=== PATIENT | female | born 1985 | race Caucasian/White ===

== ENCOUNTER 2020-06-07 18:33 | Inpatient (IN) | payer BC ==
[~2020-06-07 18:33] MED LIST: Iopamidol-370 76% 500 ML 1 ML ONE
[2020-06-07] MEDS ORDERED: Lidocaine 1% w/Epinephrine 1:100K 20 ML VIAL ONE ×2 (18:40→20:15)
[2020-06-07] MEDS ORDERED: Boostrix 0.5 ML (Tdap) VIAL ONE (18:45)
[2020-06-07 19:04] LABS: #Eosinphils 0.1 thou/uL (0.0-0.7); #Lymphocytes 2.9 thou/uL (1.20-3.40); #Monocytes 0.6 thou/uL (0.11-0.59); #Neutrophils 9.8 thou/uL (1.40-6.50); %Basophils 0.3 % (0.0-1.0); %Eosinophils 0.7 % (0.0-10.0); %Lymphocytes 21.3 % (21.0-51.0); %Monocytes 4.3 % (0.0-10.0); %Neutrophils 73.4 % (42.0-75.0); Hemoglobin 15.3 g/dL (12.0-16.0); Mean Corpuscular HGB CONC 33.7 g/dL (32.0-36.0); Mean Corpuscular Hemoglobin 29.2 pg (27.0-31.0); Mean Corpuscular Volume 86.5 fL (78.0-98.0); Mean Platelet Volume 8.1 fL (7.4-10.4); Platelet Count 215 thou/uL (130-400); Red Blood Cell (RBC) Count 5.23 mill/uL (4.20-5.40); White Blood Cell (WBC) Count 13.4 thou/uL (4.8-10.8)
[2020-06-07 19:06] LABS: BHCG - Serum Negative (NEGATIVE); Pregs Control Background? CLEAR/WHITE (CLR/WHITE); Pregs Control Bar Appear? YES (CONTROL BAR)
[2020-06-07] MEDS ORDERED: Fentanyl 100 MCG/2 ML VIAL ONE ×3 (19:12→21:48)
[2020-06-07 19:14] LABS: Prothrombin Time 13.2 sec (12.0-14.7)
[2020-06-07 19:16] LABS: ALT (SGPT) 21 U/L (8-55); AST (SGOT) 28 U/L (5-34); Albumin 4.4 g/dL (3.5-5.0); Alkaline Phosphatase 63 U/L (40-110); Anion Gap 18 mmol/L (10-20); BUN (Urea Nitrogen) 15 mg/dL (7.0-18.7); Bilirubin, Total 2.2 mg/dL (0.2-1.2); Calc. Creatinine Clearance 0 mL/min (70-130); Carbon Dioxide 21 mmol/L (22-29); Chloride 102 mmol/L (98-107); Globulin 3.2 g/dL (2.4-3.5); Glucose 123 mg/dL (70-105); PTT 20.1 sec (22.9-36.1); Potassium 3.7 mmol/L (3.5-5.1); Protein, Total 7.6 g/dL (6.0-8.3); Sodium 137 mmol/L (136-145)
--- NOTE | 2020-06-07 19:23 | CT ---
CT Facial Bones WO Con History: Kicked by horse Comparison: None. Findings: Vertically oriented left mandibular parasymphyseal fracture extending through the alveolar bone at the left mandibular canine. Mild comminution of the inferior lateral cortex. No displacement of the alveolar bone. Nondisplaced right parasymphyseal mandibular fracture extending to the alveolar bone of the right man dibular canine. No displacement of the temporal manubrial joints. Bilateral palatine torus. The nasal bones are intact. Osseous nasal septum is intact. The zygoma and zygomatic arches are intac t. The medial orbital crum, lateral orbital crum, orbital floors and orbital roofs are intact. Simultaneous gas throughout the left cheek and bilateral submandibular space. The left mandibular soft tissues the superficial fat are 2 separate radiopaque foreign objects measur ing 2 and 5 mm just underneath the skin surface. Impression: 1. Bilateral mandibular parasymphyseal fractures extending through the alveolar bone of the canine te eth. No significant displacement. 2. Two small 5 and 2 mm radiopaque foreign objects the left mandibular superficial soft tissue just b eneath the skin surface.
--- NOTE | 2020-06-07 20:11 | CT ---
CT OF BRAIN PERFORMED WITHOUT CONTRAST ENHANCEMENT: 06/07/20 HISTORY: Level II trauma. The patient kicked in face and head by a horse as well as in chest region. The ventricular and cisternal system is within normal limits. There is no signs of intracerebral hemo rrhage or extra-axial fluid collections. Mastoid air cells and visualized sinuses are clear. IMPRESSION: No acute intracranial abnormalities. Findings telephoned to Dr. Soriano at 1911 hours. POS: [facility]
--- NOTE | 2020-06-07 20:15 | CT ---
CT OF CERVICAL SPINE PERFORMED WITHOUT CONTRAST ENHANCEMENT: 06/07/20 HISTORY: Neck injury status post being kicked by a horse. Vertebral bodies are normal in height. There is some degenerative changes along the course of the spi ne with some degenerative osteophytic change. The facets are in normal alignment. There is no canal o r foraminal narrowing. There is no Ct evidence for fracture. Lung apices are clear. IMPRESSION: No CT evidence of fracture of the cervical spine. Findings telephoned to Dr. Soriano at 1911 hours. POS: [facility]
[2020-06-07] MEDS ORDERED: Clindamycin/D5W 900 mg/50 ml Premix Bag ONE (20:30)
--- NOTE | 2020-06-07 20:51 | CT ---
CT OF CHEST PERFORMED WITH INTRAVENOUS CONTRAST ENHANCEMENT: 06/07/20 HISTORY: Patient was kicked in chest by a horse. There is anterior left first, second and third rib fractures. No pneumothorax or pleural effusion is identified. No pulmonary contusion seen. Thoracic aorta is normal in caliber. No mediastinal hematoma. Review of osseous structures shows slight irregularity to the anterior cortex of the body of the ster num suggesting subtle fracture. The visualized liver parenchyma shows no focal findings. IMPRESSION: Left anterior first through third rib fractures. No underlying pulmonary contusion. Also what appears to be a subtle nondisplaced fracture of the body of the sternum. Findings telephoned to Dr. Soriano at 1911 hours. POS: [facility]
[2020-06-07] MEDS: Famotidine/PF 20 mg/2ml Vial SLOW IVP SCH (21:00)
[2020-06-07] MEDS ORDERED: Ondansetron ODT 4 MG TAB PO PRN (22:44)
[2020-06-07] MEDS ORDERED: traMADol HCl 50 MG TAB PO PRN (22:44)
[2020-06-07] MEDS ORDERED: Dextrose 5% in Water 1,000 ML IV PRN (22:44)
[2020-06-07] MEDS ORDERED: Ondansetron PF 4 MG/2 ML Vial IVP PRN (22:44)
[2020-06-07] MEDS ORDERED: Cyclobenzaprine 10 MG TAB PO PRN (22:44)
[2020-06-07] MEDS ORDERED: Dextrose 50% Abboject 50 ML SYRINGE SLOW IVP PRN (22:44)
[2020-06-07] MEDS ORDERED: Gabapentin 300 MG CAP PO SCH (23:00)
[2020-06-07] MEDS ORDERED: Famotidine/PF 20 mg/2ml Vial SLOW IVP SCH (23:00)
[2020-06-07] MEDS ORDERED: Ibuprofen 600 MG TAB PO SCH (23:00)
[2020-06-07] MEDS: Acetaminophen 500 MG TAB PO SCH (23:29)
[2020-06-07] MEDS: Sodium Chloride 0.9% 1,000 ML IV SCH (23:30)
[2020-06-07] MEDS: traMADol HCl 50 MG TAB PO PRN (23:33)
--- NOTE | 2020-06-08 01:33 | HP ---
REQUESTING PHYSICIAN: Dr. Willingham. CONSULTATIONS: Oral maxillofacial surgery Dr. Tejada. HISTORY OF PRESENT ILLNESS: The patient is a 34-year-old woman who presented to the emergency department after reportedly getting thrown from a horse and kicked. Patient was brought to the emergency department with chief complaint of face pain and chest discomfort. She underwent evaluation and examination, was noted to have multiple facial fractures and rib fractures, at which time we were asked to evaluate the patient for admission and obtain orthopedic consultations. Patient believes that she had a brief period of loss of consciousness, but was unsure how long. Patient was brought to the emergency department by privately owned vehicle. ALLERGIES: PENICILLIN. CURRENT MEDICATIONS: None. 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 We will ensure that Oral Maxillofacial Surgery is aware that it is actually factor II deficiency. Past medical history also includes anxiety, bipolar disorder, and depression. PAST SURGICAL HISTORY: None. SOCIAL HISTORY: Patient denies drug, tobacco, or alcohol. REVIEW OF SYSTEMS: Ten-point review of systems is negative, except as otherwise stated. PHYSICAL EXAMINATION: VITAL SIGNS: Blood pressure 142/99, heart rate 88, respirations 18, oxygen saturation is 98% on room air, temperature is 98.3. GENERAL: The patient is resting comfortably in bed. She is awake, alert, conversant, and appropriate. Patient is remarkably talkative for someone with mandible fractures. I asked her if she was in one of her manic phases and she denied this. Her [place] Coma Scale is 15. HEENT: Head is normocephalic with contusions noted to her mandible and maxilla area. She also has laceration to the left side of her mandible that Dr. Tejada is at bedside to repair. Eyes are PERRLA. Extraocular motion intact. Nose has dry blood in both nares. Ears are atraumatic with discharge. Oropharynx shows contusion to the upper and lower lip and what appears to be malocclusion. NECK: Immobilized in a cervical collar. Trachea is midline. No JVD. CHEST: Clear to auscultation with moderate inspiratory and expiratory effort as the patient has discomfort due to her rib fractures. ABDOMEN: Soft, flat, nontender with active bowel sounds. EXTREMITIES: Neurovascularly intact x4. LABORATORY DATA: White blood cell count 13.4, hemoglobin 15.3, hematocrit 45.3, platelets 215. Sodium 137, potassium 3.7, chloride 102, CO2 21, BUN 15, creatinine 0.79, glucose 123, total bilirubin 2.2, AST 28, ALT 21, alkaline phosphatase 63. Serum hCG is negative. INR is 1.0. RADIOGRAPHIC REPORTS: CT of the brain without contrast shows no acute intercranial abnormalities. CT of the face without contrast shows bilateral mandibular parasymphyseal fractures extending through the alveolar bone of the canine teeth. No significant displacement. There are 2 small 5 mm and 2 mm foreign objects in the left mandibular superficial soft tissue just beneath the skin surface. CT of the C-spine without contrast shows no evidence of fracture of the C-spine. CT of the chest shows a left anterior 1st through 3rd rib fractures with no underlying pulmonary contusion and a subtle nondisplaced fracture of the body of this sternum. ASSESSMENT: 1. Status post fall and kick by horse. 2. Concussion. 3. Left 1st through 3rd rib fractures. 4. Bilateral mandibular parasymphyseal fractures. 5. Acute pain secondary to above. PLAN: Plan will be to admit the patient to the surgical floor. We will make her n.p.o. after midnight. She will get clindamycin here in the ER and we will begin IV once she is upstairs. We will do Peridex oral rinses. Patient may have a full liquid diet up until midnight. We will do pain control, pulmonary toilet, gastritis, and mechanical VTE prophylaxis. Patient was evaluated in the emergency department by Dr. Tejada and she was seen on the surgical floor by Dr. Patterson. Job ID: [id number]
[2020-06-08] MEDS: Clindamycin/D5W 600 MG in Premix Bag 1 BAG IVPB SCH ×4 (03:01→23:49)
[2020-06-08 04:38] VITALS: BMI 25.0
[2020-06-08 05:44] LABS: #Lymphocytes 2.2 thou/uL (1.20-3.40); #Monocytes 0.7 thou/uL (0.11-0.59); #Neutrophils 6.1 thou/uL (1.40-6.50); %Basophils 0.3 % (0.0-1.0); %Eosinophils 0.1 % (0.0-10.0); %Neutrophils 67.6 % (42.0-75.0); Hemoglobin 12.7 g/dL (12.0-16.0); Mean Corpuscular HGB CONC 33.8 g/dL (32.0-36.0); Mean Corpuscular Hemoglobin 29.4 pg (27.0-31.0); Mean Corpuscular Volume 86.9 fL (78.0-98.0); Mean Platelet Volume 7.9 fL (7.4-10.4); Platelet Count 184 thou/uL (130-400); RBC Distribution Width 12.1 % (11.5-14.5); Red Blood Cell (RBC) Count 4.31 mill/uL (4.20-5.40)
[2020-06-08 05:49] LABS: INR-International Normal Ratio 1.1; PTT 26.7 sec (22.9-36.1); Prothrombin Time 14.8 sec (12.0-14.7)
[2020-06-08 06:03] LABS: Anion Gap 14 mmol/L (10-20); BUN (Urea Nitrogen) 12 mg/dL (7.0-18.7); Calc. Creatinine Clearance 128 mL/min (70-130); Calcium 8.3 mg/dL (7.8-10.44); Carbon Dioxide 23 mmol/L (22-29); Chloride 104 mmol/L (98-107); Glucose 105 mg/dL (70-105); Potassium 4.1 mmol/L (3.5-5.1); Sodium 137 mmol/L (136-145)
[2020-06-08] MEDS: Acetaminophen 500 MG TAB PO SCH ×4 (06:05→17:31)
[2020-06-08] MEDS: Ibuprofen 600 MG TAB PO SCH ×3 (06:05→23:49)
[2020-06-08] MEDS: Morphine 2 MG/ML VIAL SLOW IVP PRN ×2 (06:05→10:39)
--- NOTE | 2020-06-08 08:30 | RAD ---
Chest AP view INDICATION: Follow-up evaluation COMPARISON: Prior CT of the thorax dated June 07, 2020 FINDINGS: Lungs: The lungs are clear Cardiac silhouette: The cardiomediastinal silhouette appears within normal limits. Pulmonary vasculature: Normal Pleural spaces: No pleural effusion or pneumothorax is demonstrated. Upper abdomen: No abnormality seen. Osseous structures: Anterior left first through third rib fractures are stable. Additional findings: None. IMPRESSION: Stable anterior left first through third rib fractures. No pneumothorax or overt pulmonary contusion demonstrated.
[2020-06-08] MEDS: Famotidine/PF 20 mg/2ml Vial SLOW IVP SCH ×2 (09:15→10:36)
[2020-06-08] MEDS: Chlorhexidine Gluconate 15 ML UDCUP SSP SCH ×2 (09:15→23:49)
[2020-06-08] MEDS: Sodium Chloride 0.9% 1,000 ML IV SCH (09:16)
[2020-06-08] MEDS: Gabapentin 300 MG CAP PO SCH (09:19)
--- NOTE | 2020-06-08 09:20 | CON ---
DATE OF CONSULTATION: REASON FOR CONSULTATION: Facial fractures and lacerations. CHIEF COMPLAINT: Jaw pain. HISTORY OF PRESENT ILLNESS: This is a 34-year-old female, who was apparently kicked by a horse this evening and was thrown from the horse first. The patient was triaged by the ER and had chest discomfort and face pain. She underwent CT examination as well and found to have multiple facial fractures and rib fractures. She is being admitted to the [facility]. The patient believes she had a brief period of loss of consciousness, but negative CT head. She does complain of bilateral V3 paresthesia. ALLERGIES: PENICILLIN. CURRENT MEDICATIONS: None. PAST MEDICAL HISTORY: Factor II Leiden, history of PEs, bipolar, anxiety and depression. PAST SURGICAL HISTORY: None. SOCIAL HISTORY: The patient denies alcohol, tobacco, or drug abuse. REVIEW OF SYSTEMS: Negative except for the above noted in the History of Present Illness. PHYSICAL EXAMINATION: VITAL SIGNS: The patient's vital signs are stable. Blood pressure is 142/99, heart rate is 88, and respirations are 18. She is saturating 98% on room air, temperature 98.3. GENERAL: She is awake, alert, and oriented x3. She is in no acute distress. HEENT: Her pupils are equal, round, and reactive to light and accommodation. Her nares are patent bilaterally. There is no septal deviation. She does have a large approximately 8-cm laceration to the left cheek and chin area as well as a smaller 4-cm laceration in the submental area. Both of these go through and through to the bone and intraoral cavity. She sheared off multiple maxillary and mandibular buccal cusps of her teeth, most of her posterior teeth. There is a fracture deformity and mobility of the fracture segment between the lower left canine, and the patient does have a gross malocclusion. Her opening is good. There is no trismus. There is no floor of mouth edema. Her airway is patent. IMAGING DATA: CT scan of the face shows a bilateral mandibular symphysis fracture, multiple fractured teeth. ASSESSMENT: A 34-year-old female, bilateral mandible fracture, multiple fractured teeth, large facial lacerations. PLAN: I will wash out lacerations at the bedside today, and will do primary tack closure of lacerations in the ER tonight. We will take the patient to the operating room tomorrow afternoon for open reduction and internal fixation of mandible fractures, extraction of any indicated teeth. We will have the patient on IV antibiotics per Trauma Team and admitted by Trauma Team. Job ID: [id number]
[2020-06-08] MEDS ORDERED: Dexamethasone 20 MG/5 ML VIAL ONE (10:54)
[2020-06-08] MEDS ORDERED: Lidocaine 1% PF 5 ML VIAL ONE (10:54)
[2020-06-08] MEDS ORDERED: Ondansetron PF 4 MG/2 ML Vial ONE (10:54)
[2020-06-08] MEDS ORDERED: PROPOFOL 200 MG/20 ML VIAL ONE (10:54)
[2020-06-08] MEDS ORDERED: Glycopyrrolate 0.2 MG/ML 5 ML SYRINGE ONE (10:54)
[2020-06-08] MEDS ORDERED: Rocuronium Bromide 10 MG/ML (10ML VIAL) ONE (10:54)
[2020-06-08 12:58] LABS: SARS-CoV-2 MS2 Positive; SARS-CoV-2 N Gene Negative; SARS-CoV-2 S Gene Negative; SARS-CoV-2 by NAA Not Detected (NotDetected); SARS-CoV-2 orf1ab Negative
[2020-06-08] MEDS ORDERED: Chlorhexidine Gluconate 15 ML UDCUP SSP ONE (17:38)
[2020-06-08] MEDS ORDERED: Midazolam HCl 2 mg/2 ml Vial ONE (18:09)
[2020-06-08] MEDS ORDERED: Fentanyl 100 MCG/2 ML VIAL ONE ×2 (18:09→22:32)
[2020-06-08] MEDS ORDERED: Lidocaine 1% w/Epinephrine 1:100K 20 ML VIAL ONE (18:24)
[2020-06-08] MEDS ORDERED: AFRIN NASAL MIST 15 ML BOT ONE (18:33)
--- NOTE | 2020-06-08 19:56 | PRG ---
DATE OF SERVICE: 06/08/2020 SUBJECTIVE: The patient is currently in the surgical floor. She was admitted yesterday status post being kicked by a horse after falling from that animal. She was admitted with a concussion, left 1st through 3rd rib fractures and a bilateral mandibular fracture with laceration that was repaired in the emergency department. Today, she is awaiting surgery. She has been n.p.o. since midnight. Her pain is controlled. She has no issues except that she is anxious to get her surgery over with. OBJECTIVE: VITAL SIGNS: Temperature is 97.9, heart rate 68, blood pressure 113/76, respirations 16, and oxygen saturation is 97% on room air. GENERAL: The patient is resting comfortably in bed. She is awake, alert, conversant, still speaks quite a bit considering her mandibular fractures. Her [place] Coma Scale is 15. HEENT: Her mandibular wound is clean, dry, and intact. RESPIRATIONS: Clear bilaterally. HEART: Regular rate and rhythm. ABDOMEN: Soft, nontender with active bowel sounds. EXTREMITIES: Neurovascularly intact x4. LABORATORY FINDINGS: White blood cell count 9.0, hemoglobin 12.7, hematocrit 37.4, platelets 184. Sodium 137, potassium 4.1, chloride 104, CO2 of 23, BUN 12, creatinine 0.73, glucose 105. ASSESSMENT/PLAN: 1. Status post fall and kicked by horse. 2. Concussion, improving. 3. Left first through third rib fractures, stable. 4. Bilateral mandibular parasymphyseal fracture, awaiting surgery. 5. Acute pain secondary to above, improved. 6. History of factor 2 deficiency, anxiety, and bipolar disorder. PLAN: Will be to continue supportive care. Encourage physical and occupational therapy postoperatively and likely discharge within 24 hours postoperatively if tolerating prescribed diet. Job ID: [id number]
[2020-06-08] MEDS ORDERED: FLU VACC QS2020-21(6MOS UP)/PF 60 MCG/0.5 ML SYRINGE IM ONE (21:00)
[2020-06-08] MEDS ORDERED: Bacitracin Zinc Ointment 30 gm TUBE ONE (21:16)
[2020-06-08] MEDS ORDERED: Clindamycin/D5W 600 mg/50 ml Premix Bag ONE (22:06)
[2020-06-08] MEDS ORDERED: Morphine 2 MG/ML VIAL SLOW IVP PRN (22:20)
[2020-06-08] MEDS ORDERED: Acetaminophen 500 MG TAB PO PRN (22:21)
[2020-06-08] MEDS ORDERED: Ondansetron PF 4 MG/2 ML Vial IVP PRN (22:24)
[2020-06-08] MEDS ORDERED: Promethazine HCl 25 MG/ML VIAL ONE (22:25)
[2020-06-09] MEDS: Gabapentin 300 MG CAP PO SCH ×2 (00:03→08:51)
[2020-06-09] MEDS: Ibuprofen 800 MG TAB PO SCH ×4 (00:04→17:26)
[2020-06-09] MEDS: Dexamethasone 4 mg/ml Vial SLOW IVP SCH ×4 (00:05→17:25)
[2020-06-09] MEDS: D5 0.9% NS w/ 20 mEq KCl 1,000 ML IV SCH ×2 (00:06→13:22)
[2020-06-09] MEDS: traMADol HCl 50 MG TAB PO PRN (01:30)
[2020-06-09] MEDS: Clindamycin/D5W 900 MG in Premix Bag 1 BAG IVPB SCH ×2 (03:52→13:20)
[2020-06-09] MEDS: Chlorhexidine Gluconate 15 ML UDCUP SSP SCH ×2 (08:50→16:09)
--- NOTE | 2020-06-09 11:07 | CT ---
CT OF THE FACE WITHOUT CONTRAST: Date: 06/08/2020 COMPARISON: 06/07/2020. HISTORY: Mandible fracture status post open reduction and internal fixation. TECHNIQUE: Multiple contiguous axial images were obtained in a CT of the face without contrast. Sagittal and cor onal reformats were performed. FINDINGS: The bilateral parasymphyseal mandible fractures are fixated with plates and screws. The fractures are well aligned. The previously seen radiopaque foreign bodies along the left aspect of the mandible ar e no longer present. No subluxation of the temporomandibular joints is seen. No other facial fracture s are identified. The globes and retrobulbar soft tissues are unremarkable. The visualized intracranial structures are unremarkable. There appears to have been removal of teeth in the maxilla. IMPRESSION: Status post open reduction and internal fixation of mandible fractures as above. POS: [facility]
[2020-06-09 18:39] VITALS: BP 121/75; TEMP 98
--- NOTE | 2020-06-10 06:26 | OP ---
DATE OF PROCEDURE: 06/08/2020 PREOPERATIVE DIAGNOSES: 1. Bilateral mandible fracture. 2. Complex facial lacerations. 3. Fracture of teeth 4, 5, 12, and 13. PROCEDURES PERFORMED: 1. Open reduction and internal fixation of bilateral mandible fractures. 2. Closure of complex facial lacerations approximately 12 cm. 3. Surgical removal of teeth 4, 5, 12, and 13. ESTIMATED BLOOD LOSS: 100 mL. DISPOSITION: The patient was stable, extubated, transferred to postop recovery unit. ANESTHESIA: General endotracheal anesthesia through nasal FRANC. COMPLICATIONS: None. SPECIMENS: None. DRAINS: None. BRIEF PATIENT HISTORY AND PROCEDURE IN DETAIL: This is a 34-year-old white female who is approximately 24 hours after being kicked in the face by a horse, sustaining the above-noted injuries. The injuries included bilateral displaced parasymphyseal fractures of the mandible with malocclusion, fractured teeth 3, 4, 5, 12, 13; however, tooth #3 appeared to be salvageable. The patient was taken to the operating room, prepped and draped in sterile fashion. A throat pack was placed, local anesthetic infiltration. Teeth #4 and #5 forceps tried to remove roots, but not enough crown to grab onto, so a full-thickness mucoperiosteal flap was elevated, drilled, suctioned. Buccal ostectomy and removal of the roots of teeth 4, 5, 12, and 13. Closure of the sockets after irrigation with normal saline with 4-0 chromic. A circumvestibular incision was then made in the mandible from the first premolar to first premolar bilaterally. Full-thickness mucoperiosteal flap was done. Exposure of the middle nerve was done bilaterally with care not to damage it. Bilateral mandibular parasymphyseal fractures were cleaned, mobilized, and reduced with fracture forceps. Once this was done, bicortical screws and plates using Synthes system and 2.0 plate to fixate the fractures while the patient was in good occlusion. These areas were cleaned thoroughly. Closure of the mentalis muscle with a 4-0 Vicryl followed by closure of the mucosa with 4-0 chromic gut. The patient then had a 12 cm laceration through and through the left cheek. It was linear in fashion. This was irrigated thoroughly with normal saline and washed out. Closure from the inside out 4-0 chromic mucosal, 4-0 Vicryl muscular layer followed by 5-0 Prolene skin in interrupted fashion. A submental chin laceration approximately 2 to 2.[address] down to bone was then washed out, closed with deep 4-0 Vicryl followed by superficial 5-0 Prolene. The patient tolerated the procedure well. Throat pack was placed at the beginning of the procedure and removed at the end. Job ID: [id number]
== END 2020-06-09 20:12 | disposition home or self-care (01) | DRG 141 ==
LOC: ERS 18:33 → SURG B 20:36
PROVIDERS: ADMIT Surgery; ATTEND Surgery
PROC: 0NSV04Z Reposition Left Mandible with Internal Fixation Device, Open Approach (ICD-10-PCS; principal; 2020-06-08)
PROC: 0NST04Z Reposition Right Mandible with Internal Fixation Device, Open Approach (ICD-10-PCS; 2020-06-08)
PROC: 0KQ10ZZ Repair Facial Muscle, Open Approach (ICD-10-PCS; 2020-06-08)
PROC: 0CDWXZ1 Extraction of Upper Tooth, Multiple, External Approach (ICD-10-PCS; 2020-06-08)
DX: S02.66XA Fracture of symphysis of mandible, initial encounter for closed fracture (principal); S22.42XA Multiple fractures of ribs, left side, initial encounter for closed fracture; S06.0X9A Concussion with loss of consciousness of unspecified duration, initial encounter; D68.8 Other specified coagulation defects; Z20.828 Contact with and (suspected) exposure to other viral communicable diseases; Z23 Encounter for immunization; F41.9 Anxiety disorder, unspecified; F31.9 Bipolar disorder, unspecified; S01.412A Laceration without foreign body of left cheek and temporomandibular area, initial encounter; S01.81XA Laceration without foreign body of other part of head, initial encounter; V80.010A Animal-rider injured by fall from or being thrown from horse in noncollision accident, initial encounter; Y93.52 Activity, horseback riding; Z88.0 Allergy status to penicillin
CPT/HCPCS: 36415; 70450; 70486; 71045; 71260; 72125; 80048; 80053; 84703; 85025; 85610; 85730; 86850; 86900; 86901; 87635; 90471; 90662; 90715; 94760; 96365; 96375; 96376; C1713; G0008; G0390; J1100; J2250; J2270; J2405; J2550; J2704; J3010; J3480; J3490; Q9967; S0028; U0003